=== PATIENT | male | born 1935 | race Caucasian/White ===

== ENCOUNTER → 2017-09-10 | Outpatient (REF) ==
--- NOTE | 2017-09-10 14:35 | REP ---
Chest two views HISTORY: Pneumonia Comparison: 09/25/2015 An increase in interstitial markings is present in the lungs consistent with chronic interstitial fibrosis. The heart is upper limits of normal in size. The pulmonary vasculature is normal in appearance. The bony structure is intact. IMPRESSION: Chronic interstitial fibrosis. Signed by David Callahan MD 09/10/2017 02:26 P
== END ==
LOC: M RAD 13:51
PROVIDERS: ATTEND Nurse Practitioner Family
DX: J84.10 Pulmonary fibrosis, unspecified (principal)

== ENCOUNTER → 2018-11-12 | Outpatient (REF) | payer MEDICARE | LOC: M LAB REF 10:32 | PROVIDERS: ATTEND Internal Medicine Gastroenterology | DX: R63.4 Abnormal weight loss (principal); R19.7 Diarrhea, unspecified ==

== ENCOUNTER → 2018-12-30 | Outpatient (REF) | payer MEDICARE | LOC: M LAB REF 12:42 | PROVIDERS: ATTEND Internal Medicine Gastroenterology | DX: R63.4 Abnormal weight loss (principal); R19.7 Diarrhea, unspecified ==

== ENCOUNTER → 2019-03-05 | Outpatient (REF) | payer MEDICARE | LOC: M LAB REF 15:25 | PROVIDERS: ATTEND Internal Medicine Gastroenterology | DX: R19.7 Diarrhea, unspecified (principal); R63.4 Abnormal weight loss ==

== ENCOUNTER 2019-06-23 21:01 | Inpatient (IN) | payer MEDICARE ==
[~2019-06-23] VITALS: Ht 170.2 cm; Wt 54.8 kg
[2019-06-23 21:41] VITALS: BP 113/62
[2019-06-23] MEDS ORDERED: ZOCO80TA PO (23:32)
[2019-06-23] MEDS ORDERED: BENZ200C70 PO ×2 (23:33)
[2019-06-23] MEDS ORDERED: GUAI200T6 PO (23:33)
[2019-06-23] MEDS ORDERED: AMIT-255 PO (23:33)
[2019-06-23] MEDS ORDERED: FURO20TA2 PO (23:33)
[2019-06-23] MEDS ORDERED: PANT40TA3 PO (23:33)
[2019-06-23] MEDS ORDERED: OFEV1CAP2 PO (23:33)
[2019-06-23] MEDS ORDERED: MECL12.575 PO (23:33)
[2019-06-23] MEDS ORDERED: SIME80TA PO (23:33)
[2019-06-23] MEDS ORDERED: ACETAMINOPHEN TAB 650MG DOSE (2X325MG) PO PRN (23:45)
[2019-06-24] MEDS ORDERED: BENZONATATE 100 MG CAP PO PRN
[2019-06-24] MEDS ORDERED: guaiFENesin 200 MG TAB PO PRN
[2019-06-24] MEDS ORDERED: SIMETHICONE 80 MG CHEW TAB PO PRN
[2019-06-24] MEDS: PANTOPRAZOLE 40MG TAB (PROTONIX) PO SCH ×3 (00:48→20:23)
[2019-06-24] MEDS: AMITRIPTYLINE 25 MG TAB PO SCH ×2 (00:48→20:23)
--- NOTE | 2019-06-24 01:34 | REPVR ---
EXAM: XR Abdomen, 2 Views EXAM DATE/TIME: 06/24/2019 12:44 AM CLINICAL HISTORY: 83 years old, male; Screening exam; Other: Sbo TECHNIQUE: Imaging protocol: Frontal view of the abdomen/pelvis with upright view of the abdomen. COMPARISON: No relevant prior studies available. FINDINGS: Gas-filled distended loops of small bowel are seen within the central abdomen, up to 4.1 cm in diameter. This could be seen with small bowel obstruction, ileus or enteritis. Some gas and dense fluid levels are seen within the adjacent portions of colon, suggesting that small bowel obstruction maybe acute or incomplete. No free intraperitoneal air is seen. No suspicious soft tissue calcifications are seen. Coarsened reticular lung markings seen at the visualized lung bases, likely secondary to pulmonary parenchymal fibrotic changes. IMPRESSION: Findings are worrisome for small bowel obstruction. Consider CT abdomen and pelvis for further evaluation. Findings discussed above in detail. Electronically signed by: Cm Liao On 06/24/2019 01:34:01 AM
--- NOTE | 2019-06-24 03:29 | HPEPDOC ---
[facility] Medical History & Physical Date of Admission Jun 23, 2019 Date of Service: Jun 23, 2019 History and Physical CHIEF COMPLAINT: [sbo] HISTORY OF PRESENT ILLNESS: This is an 83 yo m with multiple pmhx including colotomy sine age 48yo due to unknown reasons, who was transferred for [facility] for SBO. Patient said he is feeling somewhat better, however, a abdominal xray is still consistent with sbo. Patient said for the past 4 days he has been having watery yellow stool . denied fever, chills, chest pain, sob PAST MEDICAL HISTORY: 1. [c diff requiring extended course of treatment ]. 2. [prostate ca sp surgery and ?chemo ]. PAST SURGICAL HISTORY: 1. [colostomy]. 2. [prostate ca surgery -removal ]. 3. [C no stent]. SOCIAL HISTORY: quit smoking>30 yrs drinks a beer once in a while lives with his FAMILY HISTORY: mother of leukemia ALLERGIES: Please see below. HOME MEDICATIONS: Please see below. ROS - all 10 point review of system is negative except for whats listed in HPI Physical exam Gen: NAD, healthy appearing , HEENT: normocephalic, atraumatic, no discharge from ears or nose, no oropharyngeal erythema or exudate, neck is supple, no lymphadenopathy, trachea midline CVS: RRR, normal S1n S2, no murmur, rubs, or gallops, no edema, no jvd Resp: LCTAB, no rhonchi, wheezes or crackles Abd : soft nontender, normal bowel sounds, no rebound tenderness or guarding , epigastric tenderness , green watery stool noted MSK: no swelling, full range of motion, strength 5/5 Neuro: AOAx3, no confusion, no focal deficit Psych: normal mood and affect, good judgment LABORATORY DATA: See below. IMAGING: [ abd xray IMPRESSION: Findings are worrisome for small bowel obstruction. Consider CT abdomen and pelvis for further evaluation. Findings discussed above in detail.] MICROBIOLOGY: Please see below. ASSESSMENTand PLAN SBO -ngt -npo -Dr. Falcon already contacted the patient -CT scan and blood work which was done at [facility] are in patient's chart -plan for coloscopy with Dr. Sullivan - place consult for possible colonoscopy here when sbo resolves - gi panel negative dvt ppx full code Vital Signs Vital Signs Date Time Temp Pulse Resp B/P (MAP) Pulse Ox O2 Delivery O2 Flow Rate FiO2 06/23/19 21:41 96.7 64 16 113/62 (79) 100 Home Medications Scheduled Amitriptyline HCl (Amitriptyline HCl) 25 Mg Tablet, 25 MG PO QHS Furosemide (Furosemide) 20 Mg Tablet, 20 MG PO DAILY Meclizine HCl (Meclizine HCl) 12.5 Mg Tablet, 12.5 MG PO BID Nintedanib Esylate (Ofev) 150 Mg Capsule, 150 MG PO BID Pantoprazole Sodium (Pantoprazole Sodium) 40 Mg Tablet.dr, 40 MG PO BID Simvastatin (Zocor) 80 Mg Tablet, 40 MG PO QHS Scheduled PRN Benzonatate (Benzonatate) 200 Mg Capsule, 200 MG PO TID PRN for COUGH Guaifenesin (Guaifenesin) 200 Mg Tablet, 200 MG PO TID PRN for CONGESTION Simethicone (Simethicone) 80 Mg Tab.chew, 80 MG PO TID PRN for GAS PAIN Allergies Coded Allergies: Penicillins (Verified Allergy, Mild, RASH, 06/23/19) A-FIB/CHADSVASC A-FIB History Current/History of A-Fib/PAF?: No Current PO Anticoag Therapy: No Age/Risk Factor Scoring CHADSVASC: CHADSVASC Response (Comments) Value Age Risk Factor Age >/= 75 years old 2 Gender Risk Factor Male 0 Hx of CHF No 0 Hx of HTN No 0 Hx of Stroke/TIA/or VTE No 0 Hx of Diabetes No 0 Hx of Vascular Disease No 0 Total 2 Treatment Treatment ordered: NONE SAVANNAH FERNANDEZ MD Jun 24, 2019 03:29
[2019-06-24 06:00] VITALS: BP 92/52
--- NOTE | 2019-06-24 06:33 | REPVR ---
EXAM: XR Chest, 1 View EXAM DATE/TIME: 06/24/2019 5:55 AM CLINICAL HISTORY: 83 years old, male; Device placement; Ng tube; Additional info: Ngt placement TECHNIQUE: Imaging protocol: XR of the chest, 1 view. COMPARISON: CR Chest, 2 view PA, Lat 09/10/2017 1:59 PM FINDINGS: LUNGS and PLEURAL SPACE: Extensively coarsened reticular pulmonary opacity seen bilaterally, similar to the prior exam, allowing for differences in technique likely due to chronic pulmonary parenchymal fibrotic changes. Mild superimposed interstitial edema or infiltrate would be difficult to exclude. Biapical pleural thickening and parenchymal scarring. No evidence of pneumothorax or significant pleural effusion. Lung volumes are low. MEDIASTINUM: The trachea slightly shifted to the right. Prominent tracheal air column could be seen in changes of COPD. CARDIAC SILHOUETTE: Cardiothoracic ratio is within normal limits. BONY THORAX: No acute findings are seen. OTHER: Transesophageal catheter has been placed, the tip overlying the upper abdomen centrally possibly within the gastric body. IMPRESSION: Findings discussed above in detail. Electronically signed by: Cm Liao On 06/24/2019 06:33:16 AM
[2019-06-24 06:35] LABS: HEMATOCRIT 30.5 % (42.0-52.0); MEAN CORPUSCULAR HEMOGLOBIN 33.8 pg (27.0-33.0); MEAN CORPUSCULAR HGB CONC 32.8 g/dl (32.0-36.5); PLATELET COUNT, AUTOMATED 147 10^3/uL (150-450); RED BLOOD COUNT 2.96 10^6/uL (4.30-6.10); WHITE BLOOD COUNT 9.2 10^3/uL (4.0-10.0)
[2019-06-24 06:55] LABS: CALCIUM LEVEL 8.9 MG/DL (8.8-10.2); CREATININE FOR GFR 1.5 MG/DL (0.70-1.30); GLOMERULAR FILTRATION RATE 47.6 (>35); POTASSIUM SERUM 3.8 MEQ/L (3.5-5.1)
[2019-06-24] MEDS: MECLIZINE 12.5 MG TAB PO SCH ×2 (09:54→20:23)
[2019-06-24] MEDS: HEPARIN SOD (PORCINE) 5000 UNITS/ML VIAL SC SCH ×2 (09:55→20:23)
[2019-06-24] MEDS ORDERED: MAGNESIUM CITRATE 300 ML BTL PO ONE (11:00)
[2019-06-24 14:00] VITALS: BP 146/80
--- NOTE | 2019-06-24 16:52 | IPNPDOC ---
Subjective Date Seen The patient was seen on 06/24/19. Subjective Chief Complaint/HPI This is an 83 yo m with multiple pmhx including colotomy sine age 48yo due to unknown reasons, who was transferred for [facility] for SBO. Patient said he is feeling somewhat better, however, a abdominal xray is still consistent with sbo. Patient said for the past 4 days he has been having watery yellow stool . denied fever, chills, chest pain, sob Today 06/24,patient laying in bed with GN tube in place.He is hard of hearing, providing most of the information. saying that this problem has been going on for a while.She brought a DNR and has given it to the nurse.No complaint from the patient.Nurse reporting that not much has been drained from the NG tube. General: Reports: ROS Unobtainable, Chills, Night Sweats, Fatigue, Malaise, Normal Appetite, Other Symptoms Constitutional: Denies: Chills, Fever, Night Sweats ENT: Denies: Head Aches, Ear Pain, Dysphagia Pulmonary: Denies: Dyspnea, Cough Cardiovascular: Denies: Chest Pain, Palpitations, Orthopnea, Paroxysmal Noc. Dyspnea, Lt Headedness Gastrointestinal: Reports: Other Symptoms (has a colostomy bag.); Denies: Nausea, Vomiting, Abdominal Pain, Diarrhea Musculoskeletal: Denies: Neck Pain, Back Pain, Joint Pain, Muscle Pain, Spasms Neurological: Reports: Weakness, Other Symptoms (hard of hearing.) Psych: Reports: Mood Normal; Denies: Depression, Memory Issues Objective Physical Examination ENT Exam: Positive: Atraumatic, Other ENT (NG tube in place with less content in.) Neck Exam: Positive: Supple; Negative: JVD, thyromegaly Chest Exam: Positive: Clear to auscultation, Normal air movement Heart Exam: Positive: Rate Normal, Regular Rhythm, Normal S1, Normal S2; Negative: Murmurs, Rubs Abdomen Exam: Positive: BS Hypoactive, Soft, Other (Colostomy bag in place) Extremity Exam: Positive: Normal pulses; Negative: Clubbing, Cyanosis, Edema Neuro Exam: Positive: Other (awake,hard of hearing,follows commands.) Psych Exam: Positive: Mood NL, Other (calm,not anxious) Assessment /Plan Problems (1) SBO (small bowel obstruction) Status: Acute Problem Text: NG tube in place.Now not draining much.However surgery is involved,will follow recommendations.Continue closely monitor electrolytes.On iv fluid.Pt also follows with GI, and has a colonoscopy scheduled,consider consulting gi for colonoscopy here once SBO resolved. (2) MALICK (acute kidney injury) Problem Text: Creatinine 1.50.Will follow in am.Pt is on iv fluid (3) Depression Problem Text: Resume routine meds. (4) H/O prostate cancer Problem Text: Had surgery and possibly chemo. (5) Colostomy in place Problem Text: Continue colostomy care Plan/VTE VTE Prophylaxis Ordered?: Yes (scds) Plan Continue current management Disposition Once cleared by surgery VS, I&O, 24H, Fishbone Vital Signs/I&O Vital Signs Date Time Temp Pulse Resp B/P (MAP) Pulse Ox O2 Delivery O2 Flow Rate FiO2 06/24/19 14:00 96.5 78 17 146/80 (102) 100 I&O- Last 24 Hours up to 6 AM 06/24/19 06:00 Intake Total 0 ml Balance 0 ml Laboratory Data 24H LABS Laboratory Tests 2 06/24/19 05:45: Nucleated Red Blood Cells % (auto) 0.0, Anion Gap 2L, Glomerular Filtration Rate 47.6, Blood Urea Nitrogen 27H, Creatinine 1.50H, Sodium Level 140, Potassium Level 3.8, Chloride Level 108H, Carbon Dioxide Level 30, Calcium Level 8.9, Magnesium Level 2.0 CBC/BMP Laboratory Tests 06/24/19 05:45 Red Blood Count 2.96 L, Mean Corpuscular Volume 103.0 H, Mean Corpuscular H emoglobin 33.8 H, Mean Corpuscular Hemoglobin Concent 32.8, Red Cell Distribution Width 14.9 H, Calcium Level 8.9 SEKOU GIBBONS MD Jun 24, 2019 16:52
[2019-06-24 17:28] LABS: HEMATOCRIT 31.2 % (42.0-52.0); MEAN CORPUSCULAR HEMOGLOBIN 33.6 pg (27.0-33.0); MEAN CORPUSCULAR HGB CONC 32.1 g/dl (32.0-36.5); MEAN CORPUSCULAR VOLUME 104.7 fl (80.0-96.0); PLATELET COUNT, AUTOMATED 141 10^3/uL (150-450); RED BLOOD COUNT 2.98 10^6/uL (4.30-6.10); WHITE BLOOD COUNT 6.9 10^3/uL (4.0-10.0)
[2019-06-24 17:49] LABS: CALCIUM LEVEL 9.4 MG/DL (8.8-10.2); CREATININE FOR GFR 1.43 MG/DL (0.70-1.30); GLOMERULAR FILTRATION RATE 50.3 (>35); POTASSIUM SERUM 3.9 MEQ/L (3.5-5.1)
--- NOTE | 2019-06-24 18:12 | CR ---
DATE OF CONSULTATION: 06/24/2019 REASON FOR CONSULTATION: Small bowel obstruction. HISTORY OF PRESENT ILLNESS: The patient is an 83-year-old male with a history of recent watery yellow stools for the past 3-4 days. He presented to [facility] with complaints of nausea, vomiting and decreased output from his ostomy. He was found to have normal laboratories, normal vital signs, and possible early small bowel obstruction (SBO) on the CT there. Their hospitalists were not comfortable admitting since they do not have any surgical backup, so he was transferred here. He was admitted to the hospitalist service here and I have been asked to consult regarding the possible small bowel obstruction. This morning, he has an nasogastric (NG) tube that was placed last evening. It is in proper positioning on the x-ray. However, there has been almost no output at all. His abdomen is soft, nontender. His ostomy is full of air in the bag. No stool. Denies nausea, vomiting, fevers, chills, any chest pains or shortness of breath. No other complaints this morning. PAST MEDICAL HISTORY: 1. Clostridium (C) difficile. 2. Prostate cancer. 3. History of a colostomy for an unknown reason about 40 years ago. PAST SURGICAL HISTORY: 1. Colostomy. 2. Prostate cancer surgery. 3. Cardiac surgery. SOCIAL HISTORY: Denies any drug, alcohol, or tobacco abuse. FAMILY HISTORY: Noncontributory. ALLERGIES: PENICILLIN. MEDWS: Please see medical record. REVIEW OF SYSTEMS: Pertinent positives and negatives as stated in the history of present illness (HPI). PHYSICAL EXAMINATION: GENERAL: Alert and oriented times three, in no acute distress. Temperature 97.6, pulse 72, respirations 16, blood pressure 92/52, pulse oximetry 98% on room air. HEENT: Pupils equally round and react to light and accommodation. HEART: S1, S2, regular rate and rhythm. LUNGS: Clear to auscultation bilaterally. ABDOMEN: Soft, nontender, nondistended. There is a colostomy in the left lower quadrant with air in the bag. No stool. EXTREMITIES: No clubbing, cyanosis or edema. LABORATORY DATA: White count 9.2, hemoglobin 10, platelets 147. Potassium 3.8, creatinine 1.5, magnesium 2. IMAGING STUDIES: Abdominal x-ray that was completed after he was transferred here shows signs of gas-filled distended loops of small bowel in the mid abdomen up to 4.1 cm in diameter. ASSESSMENT AND PLAN: The patient is an 83-year-old male with a possible small bowel obstruction versus ileus. My recommendation at this time is to clamp the nasogastric (NG) tube and give a bottle of magnesium citrate since there is no output from the NG and he has got lots of the air in his ostomy bag. If the magnesium citrate flushes him out and he has lots of stool and can tolerate it without any difficulties then we will start him on a clear liquid diet. If that works for 12 hours, we will remove the NG tube and advance his diet. If he, however, shows signs of increasing obstruction then we will continue with the NG tube for at least another 48-72 hours and see if that relieves itself. If not, I will discuss surgery with him.
[2019-06-24 22:00] VITALS: BP 96/58
[2019-06-25 06:00] VITALS: BP 102/66
[2019-06-25 09:00] VITALS: BP 80/52
[2019-06-25] MEDS: PANTOPRAZOLE 40MG TAB (PROTONIX) PO SCH (09:24)
[2019-06-25] MEDS: MECLIZINE 12.5 MG TAB PO SCH (09:24)
[2019-06-25] MEDS: HEPARIN SOD (PORCINE) 5000 UNITS/ML VIAL SC SCH (09:25)
--- NOTE | 2019-06-25 11:31 | IPNPDOC ---
Subjective Date Seen The patient was seen on 06/25/19. Subjective Chief Complaint/HPI Patient had a BM and colostomy bag, he is clinically stable, asymptomatic and wishes to go home General: Denies: ROS Unobtainable, Chills, Night Sweats, Fatigue, Malaise, Normal Appetite, Other Symptoms Constitutional: Denies: Chills, Fever, Malaise, Night Sweats, Weakness, Fatigue, Weight Loss, Lethargy, Other Eyes: Denies: Pain, Vision change, Conjunctivae inflammation, Eyelid inflammation, Redness, Other ENT: Denies: Head Aches, Ear Pain, Dysphagia, Sinus Congestion, Post Nasal Drip, Sore Throat, Epistaxis, Other Symptoms Pulmonary: Denies: Dyspnea, Cough, Pleuritic Chest Pain, Other Symptoms Cardiovascular: Denies: Chest Pain, Palpitations, Orthopnea, Paroxysmal Noc. Dyspnea, Edema, Lt Headedness, Other Symptoms Gastrointestinal: Denies: Nausea, Vomiting, Abdominal Pain, Diarrhea, Constipation, Melena, Hematochezia, Other Symptoms Musculoskeletal: Denies: Neck Pain, Back Pain, Shoulder Pain, Arm Pain, Hand Pain, Leg Pain, Foot Pain, Joint Pain, Muscle Pain, Spasms, Other Symptoms Neurological: Denies: Weakness, Numbness, Incoordination, Change in speech, Confusion, Seizures, Other Symptoms Objective Physical Examination ENT Exam: Positive: Atraumatic, Other ENT (NG tube in place with less content in.) Neck Exam: Positive: Supple Chest Exam: Positive: Clear to auscultation, Normal air movement Heart Exam: Positive: Rate Normal, Regular Rhythm, Normal S1, Normal S2 Abdomen Exam: Positive: Normal bowel sounds, Soft; Negative: Tenderness Extremity Exam: Positive: Normal pulses Neuro Exam: Positive: Other (awake,hard of hearing,follows commands.) Psych Exam: Positive: Mood NL, Other (calm,not anxious) Assessment /Plan Problems (1) SBO (small bowel obstruction) Status: Acute Problem Text: NG tube was removed Lidia had a BM in his colostomy bag He feels comfortable in no distress Physical examination shows soft, nontender, bowel sounds present Discussed with Dr. Mc Will advance diet Once patient tolerates oral diet. He can be discharged home (2) MALICK (acute kidney injury) Problem Text: Encourage oral hydration DC IV fluids (3) Depression Problem Text: Resume routine meds. (4) H/O prostate cancer Problem Text: Had surgery and possibly chemo. (5) Colostomy in place Problem Text: Continue colostomy care Plan/VTE VTE Prophylaxis Ordered?: Yes (scds) VS, I&O, 24H, Fishbone Vital Signs/I&O Vital Signs Date Time Temp Pulse Resp B/P (MAP) Pulse Ox O2 Delivery O2 Flow Rate FiO2 06/25/19 09:00 97.2 94 14 80/52 (61) 97 I&O- Last 24 Hours up to 6 AM 06/25/19 06:00 Intake Total 360 ml Output Total 100 ml Balance 260 ml Laboratory Data 24H LABS Laboratory Tests 2 06/24/19 17:22: Nucleated Red Blood Cells % (auto) 0.0, Anion Gap 4L, Glomerular Filtration Rate 50.3, Blood Urea Nitrogen 27H, Creatinine 1.43H, Sodium Level 140, Potassium Level 3.9, Chloride Level 111H, Carbon Dioxide Level 25, Calcium Level 9.4 CBC/BMP Laboratory Tests 06/24/19 17:22 Red Blood Count 2.98 L, Mean Corpuscular Volume 104.7 H, Mean Corpuscular Hemoglobin 33.6 H, Mean Corpuscular Hemoglobin Concent 32.1, Red Cell Distri bution Width 14.8 H, Calcium Level 9.4 CHARLENE DÍAZ MD Jun 25, 2019 11:31
[2019-06-25 14:00] VITALS: BP 99/55
--- NOTE | 2019-06-25 15:28 | DS.PDOC ---
Discharge Summary General Date of Admission Jun 23, 2019 at 21:39 Date of Discharge 06/25/19 Discharge Summary PROCEDURES PERFORMED DURING STAY: None. ADMITTING DIAGNOSES: 1. SBO. DISCHARGE DIAGNOSES: 1. SBO. COMPLICATIONS/CHIEF COMPLAINT: small bowel obstruction. HISTORY OF PRESENT ILLNESS: This is an 83 yo m with multiple pmhx including colotomy sine age 48yo due to unknown reasons, who was transferred for [facility] for SBO. Patient said he is feeling somewhat better, however, a abdominal xray is still consistent with sbo. Patient said for the past 4 days he has been having watery yellow stool . denied fever, chills, chest pain, sob. HOSPITAL COURSE: [Patient was admitted with the possible SBO. Patient was kept nothing by mouth initially, and patient was seen by Dr. Falcon And recommended to get her magnesium citrate to patient. Patient had a BM this morning. His examination is absolutely negative. Abdomen is soft, nontender, bowel sounds presents with functioning colostomy. Case discussed with Dr. Mc and the agreed with advancing the diet in discharging patient. Diet was advanced and he tolerated lunch very well without any complications or any problems and he will be discharged home on all his current medications and follow with his PCP in one week. DISCHARGE MEDICATIONS: Please see below. ALLERGIES: Please see below. PHYSICAL EXAMINATION ON DISCHARGE: VITAL SIGNS: Please see below. GENERAL: Within normal limits HEENT: PERRLA NECK: Supple CARDIOVASCULAR EXAMINATION: S1, S2, regular RESPIRATORY EXAMINATION: Clear to A&P ABDOMINAL EXAMINATION: , Soft, nontender, bowel sounds present EXTREMITIES: Negative clubbing, cyanosis, edema SKIN: Normal NEUROLOGICAL EXAMINATION: . No focal motor sensory deficit PSYCHIATRIC EXAMINATION: Normal LABORATORY DATA: Please see below. IMAGING: Abdominal x-ray consistent with possible SBO PROGNOSIS: [Good ACTIVITY: As tolerated. DIET: As tolerated DISCHARGE PLAN: Follow with PCP in one week DISPOSITION: Home DISCHARGE INSTRUCTIONS: 1. As per discharge instructions. ITEMS TO FOLLOWUP ON ON OUTPATIENT: 1. Follow with PCP in one week. DISCHARGE CONDITION: Stable. TIME SPENT ON DISCHARGE: 25 minutes. Vital Signs/I&Os Vital Signs Date Time Temp Pulse Resp B/P (MAP) Pulse Ox O2 Delivery O2 Flow Rate FiO2 06/25/19 14:00 97.0 82 17 99/55 (70) 100 I&O- Last 24 Hours up to 6 AM 06/25/19 06:00 Intake Total 360 ml Output Total 100 ml Balance 260 ml Laboratory Data Labs 24H Laboratory Tests 2 06/24/19 17:22: Nucleated Red Blood Cells % (auto) 0.0, Anion Gap 4L, Glomerular Filtration Rate 50.3, Blood Urea Nitrogen 27H, Creatinine 1.43H, Sodium Level 140, Potassium Level 3.9, Chloride Level 111H, Carbon Dioxide Level 25, Calcium Level 9.4 CBC/BMP Laboratory Tests 06/24/19 17:22 Red Blood Count 2.98 L, Mean Corpuscular Volume 104.7 H, Mean Corpuscular Hemoglobin 33.6 H, Mean Corpuscular Hemoglobin Concent 32.1, Red Cell Distri bution Width 14.8 H, Calcium Level 9.4 Discharge Medications Scheduled Amitriptyline HCl (Amitriptyline HCl) 25 Mg Tablet, 25 MG PO QHS, (Reported) Furosemide (Furosemide) 20 Mg Tablet, 20 MG PO DAILY, (Reported) Meclizine HCl (Meclizine HCl) 12.5 Mg Tablet, 12.5 MG PO BID, (Reported) Nintedanib Esylate (Ofev) 150 Mg Capsule, 150 MG PO BID, (Reported) Pantoprazole Sodium (Pantoprazole Sodium) 40 Mg Tablet.dr, 40 MG PO BID, (Reported) Simvastatin (Zocor) 80 Mg Tablet, 40 MG PO QHS, (Reported) Scheduled PRN Benzonatate (Benzonatate) 200 Mg Capsule, 200 MG PO TID PRN for COUGH, (Reported) Guaifenesin (Guaifenesin) 200 Mg Tablet, 200 MG PO TID PRN for CONGESTION, (Reported) Simethicone (Simethicone) 80 Mg Tab.chew, 80 MG PO TID PRN for GAS PAIN, (Reported) Allergies Coded Allergies: Penicillins (Verified Allergy, Mild, RASH, 06/23/19) CHARLENE DÍAZ MD Jun 25, 2019 15:27
== END 2019-06-25 16:00 | disposition home or self-care (01) | DRG 390 ==
LOC: M MSPAV 21:39
PROVIDERS: ADMIT Internal Medicine; ATTEND Internal Medicine
DX: K56.609 Unspecified intestinal obstruction, unspecified as to partial versus complete obstruction (principal); H91.93 Unspecified hearing loss, bilateral; F32.9 Major depressive disorder, single episode, unspecified; Z92.21 Personal history of antineoplastic chemotherapy; Z85.46 Personal history of malignant neoplasm of prostate; Z93.3 Colostomy status; Z87.891 Personal history of nicotine dependence; Z79.899 Other long term (current) drug therapy; Z88.0 Allergy status to penicillin; Z66 Do not resuscitate

== ENCOUNTER → 2019-06-23 | Outpatient (REF) | payer MEDICARE ==
[~2019-06-23] MED LIST: AMIT-255 PO; BENZ200C70 PO; FURO20TA2 PO; GUAI200T6 PO; MECL12.575 PO; OFEV1CAP2 PO; PANT40TA3 PO; SIME80TA PO; ZOCO80TA PO
== END ==
LOC: M LAB REF 15:46
PROVIDERS: ATTEND Internal Medicine Gastroenterology
DX: R63.4 Abnormal weight loss (principal); R19.7 Diarrhea, unspecified